=== PATIENT | male | born 1990 | race Caucasian/White ===

== ENCOUNTER 2017-02-06 20:27 | Emergency (ER) | payer MEDICAID, OTHER ==
[2017-02-06 20:37] VITALS: BP 122/69; PULSE 63; RESP 18; TEMP 99.1; O2SAT 99
== END 2017-02-06 21:45 | disposition left against medical advice (07) ==
LOC: H.ER 20:27
DX: Z02.89 Encounter for other administrative examinations (principal)

== ENCOUNTER 2017-02-08 11:33 | Emergency (ER) | payer OTHER ==
[2017-02-08 11:35] VITALS: BMI 35.2
[2017-02-08 11:37] VITALS: BP 129/71; PULSE 64; RESP 17; TEMP 97.7; O2SAT 97
[2017-02-08] MEDS ORDERED: Sodium Chloride 0.9% 1,000 ML IV STA (11:56)
[2017-02-08] MEDS ORDERED: Morphine 4 MG/ML VIAL IVP ONE (11:57)
--- NOTE | 2017-02-08 12:00 | ED PDOC ---
HPI: Abdomen Time Seen by Provider: 02/08/17 11:58 Chief Complaint (Nursing): Abdominal Pain Chief Complaint (Provider): ABDOMINAL PAIN History Per: Patient (26 Y/O MALE HERE WITH RUQ ABDOMINAL PAIN ONGOING X 11 DAYS. STATES HE WAS SEEN 02/06/2017 BUT WAS WAITING FOR 45 MINUTES TO BE SEEN AND LEFT. HAS NOT TAKEN ANY PAIN MEDICATIONS. STATES HE HAS HAD SYMPTOMS CONTINUOUSLY. NO H/O ABD SURGERIES.) Past Medical History Reviewed: Historical Data, Nursing Documentation, Vital Signs Vital Signs: Last Vital Signs Temp 97.7 F 02/08/17 11:36 Pulse 64 02/08/17 11:36 Resp 17 02/08/17 11:36 BP 129/71 02/08/17 11:36 Pulse Ox 97 02/10/17 14:58 - Family History Family History: States: Unknown Family Hx - Home Medications Home Medications: Ambulatory Orders Medication Instructions Recorded Clindamycin [Cleocin] 300 mg PO QID #40 cap 02/18/15 traMADol [Ultram] 50 mg PO Q6 PRN #15 tab 02/18/15 Ciprofloxacin HCl [Cipro] 500 mg PO BID #20 tablet 02/08/17 Metronidazole [Flagyl] 500 mg PO QID #40 tablet 02/08/17 Ondansetron ODT [Zofran ODT] 4 mg PO Q8 PRN #10 odt 02/08/17 - Allergies Allergies/Adverse Reactions: Allergies Allergy/AdvReac Type Severity Reaction Status Date / Time No Known Allergies Allergy Verified 02/18/15 20:50 Review of Systems ROS Statement: Except As Marked, All Systems Reviewed And Found Negative Gastrointestinal: Positive for: Abdominal Pain Physical Exam - Reviewed Nursing Documentation Reviewed: Yes Vital Signs Reviewed: Yes - Physical Exam Appears: Positive for: Well, Non-toxic, No Acute Distress Head Exam: Positive for: ATRAUMATIC, NORMAL INSPECTION, NORMOCEPHALIC Skin: Positive for: Normal Color, Warm, DRY Eye Exam: Positive for: EOMI, Normal appearance, PERRL ENT: Positive for: Normal ENT Inspection Neck: Positive for: Normal, Painless ROM Cardiovascular/Chest: Positive for: Regular Rate, Rhythm Respiratory: Positive for: CNT, Normal Breath Sounds Gastrointestinal/Abdominal: Positive for: Normal Exam, Bowel Sounds, Soft, Tenderness (RUQ TENDERNESS) Back: Positive for: Normal Inspection Extremity: Positive for: Normal ROM Neurologic/Psych: Positive for: Alert, Oriented - Laboratory Results Result Diagrams: 02/08/17 12:00 02/08/17 12:00 - ECG O2 Sat by Pulse Oximetry: 97 - Progress ED Course And Treament: PEPCID 20 MG IV X 1 DOSE NS [address] abd/pelvis: IMPRESSION: 1. No radiodense urolithiasis, obstructive uropathy or perinephric reaction bilaterally. Urinary bladder appears largely decompressed. 2. Localized mesenteric reaction at the right paracentral abdomen is seen anteriorly without free air or fluid collection associated or definitive bowel mural thickening. Lack of oral contrast limits evaluation the bowel. Consider possible epiploic appendagitis. If symptoms persist or worsen consider follow- up CT with contrast. patient refused morphine. did not want percocet rx for home. Disposition - Clinical Impression Clinical Impression: Colitis, UTI (urinary tract infection) - Patient ED Disposition Is Patient to be Admitted: No - Disposition Referrals: Darian Car MD [Staff Provider] - Disposition: Routine/Home Disposition Time: 14:58 Condition: STABLE Prescriptions: Ciprofloxacin HCl [Cipro] 500 mg PO BID #20 tablet Metronidazole [Flagyl] 500 mg PO QID #40 tablet Ondansetron ODT [Zofran ODT] 4 mg PO Q8 PRN #10 odt PRN Reason: Nausea/Vomiting Instructions: Urinary Tract Infection in Men (DC), Colitis (ED) Forms: [facility] (Indian), [facility] ED School/Work Excuse
[2017-02-08 12:14] LABS: RBC URINE 8 /hpf (0-3); URINE BACTERIA RARE (<OCC); URINE BILIRUBIN NEGATIVE (NEGATIVE); URINE BLOOD SMALL (NEGATIVE); URINE COLOR YELLOW (YELLOW); URINE GLUCOSE (UA) NEG (Normal); URINE KETONE TRACE mg/dL (NEGATIVE); URINE LEUKOCYTE ESTERASE SMALL Leu/uL (Negative); URINE PROTEIN NEGATIVE (NEGATIVE); URINE UROBILINOGEN 0.2-1.0 mg/dL (0.2-1.0); WBC URINE 33 /hpf (0-5)
[2017-02-08 12:27] LABS: BASO # 0.1 K/uL (0.0-0.2); BASO % 0.8 % (0.0-2.0); EOS # 0.9 K/uL (0.0-0.7); EOS % 6.1 % (0.0-4.0); HEMATOCRIT 48.7 % (35.0-51.0); LYMPH # 3.2 K/uL (1.0-4.3); LYMPH % 21.7 % (20.0-40.0); MEAN CELL VOLUME 85.9 fl (80.0-94.0); MEAN CORPUSCULAR HEMOGLOBIN 29.5 pg (27.0-31.0); MEAN CORPUSCULAR HGB CONC 34.4 g/dL (33.0-37.0); MEAN PLATELET VOLUME 8.7 fl (7.2-11.7); MONO # 1.1 K/uL (0.0-0.8); MONO % 7.4 % (0.0-10.0); NEUT # 9.4 K/uL (1.8-7.0); NRBC % 0.1 % (0.0-0.0); WHITE BLOOD COUNT 14.7 K/uL (4.8-10.8)
[2017-02-08 12:34] LABS: PARTIAL THROMBOPLASTIN TIME 34.2 Seconds (25.6-37.1)
[2017-02-08 12:39] LABS: ALCOHOL SERUM < 10 mg/dl (0-10); ALKALINE PHOSPHATASE 60 U/L (38-126); ALT/SGPT 47 U/L (21-72); AST/SGOT 26 U/L (17-59); BILIRUBIN,TOTAL 1.2 mg/dl (0.2-1.3); BLOOD UREA NITROGEN 16 mg/dl (9-20); CALCIUM 9.2 mg/dL (8.4-10.2); CARBON DIOXIDE 22 mmol/L (22-30); CHLORIDE 105 mmol/L (98-107); GFR AFRICAN-AMERICAN > 60; GLUCOSE,RANDOM 99 mg/dL (75-110); LIPASE 26 U/L (23-300); SODIUM 142 mmol/l (132-148)
[2017-02-08 12:40] LABS: ALB/GLOB RATIO 1.2 (1.0-2.1)
--- NOTE | 2017-02-08 12:41 | US ---
HISTORY: EVALUATE FOR CHOLECYSTITIS COMPARISON: None. TECHNIQUE: Sonographic evaluation of the right upper quadrant of the abdomen. FINDINGS: LIVER: Measures 16.3 cm in length. Normal echogenicity of the liver parenchyma. No mass. No intrahepatic bile duct dilatation. GALLBLADDER: No calculi. Incidental 4 mm nonmobile polyp. No mural thickening or pericholecystic fluid. Positive sonographic Rice sign. Findings are equivocal for cholecystitis. COMMON BILE DUCT: Measures 4 mm. No stones. No dilatation. PANCREAS: Could not visualized due to overlying bowel gas. RIGHT KIDNEY: Could not visualized due to bowel gas and uncooperative patient. AORTA: Unable to visualize IVC: Unable to visualize OTHER FINDINGS: None . IMPRESSION: Limited examination. No evidence of cholelithiasis. Positive sonographic Rice's sign, of uncertain significance in the absence of cholelithiasis or mural thickening. Incidental 4 mm gallbladder polyp. No biliary obstruction.
[2017-02-08] MEDS ORDERED: cefTRIAXone (Rocephin) 1 gm Inj IVPB ONE (13:37)
[2017-02-08] MEDS ORDERED: cefTRIAXone IV 1 gm in Dextros 50 ML IVPB ONE ×2 (13:45→14:23)
--- NOTE | 2017-02-08 14:00 | CT ---
PROCEDURE: CT Abdomen and Pelvis without intravenous contrast HISTORY: evaluate for renal colic COMPARISON: None. TECHNIQUE: Helical CT of the abdomen and pelvis was performed without oral or intravenous contrast as per referring physician request. Contrast Dose: None Radiation dose: Total exam DLP = 1172.39 mGy-cm. This CT exam was performed using one or more of the following dose reduction techniques: Automated exposure control, adjustment of the mA and/or kV according to patient size, and/or use of iterative reconstruction technique. FINDINGS: LOWER THORAX: Unremarkable. LIVER: Unremarkable. No gross lesion or ductal dilatation. GALLBLADDER AND BILE DUCTS: Unremarkable. PANCREAS: Unremarkable. No gross lesion or ductal dilatation. SPLEEN: Unremarkable. ADRENALS: Unremarkable. No mass. KIDNEYS AND URETERS: No radiodense urolithiasis or perinephric reaction. No hydronephrosis. No solid mass. VASCULATURE: Unremarkable. No aortic aneurysm. BOWEL: Unremarkable. No obstruction. No gross mural thickening. APPENDIX: Unremarkable. Normal appendix. PERITONEUM: Note is made of ground-glass opacity and reactive change at the anterior right paracentral mesentery. The lack of oral contrast limits evaluation local small and large bowel loops) as well as the remaining bowel), however do not appear to have significantly thickened rosa. Retained fecal material obscures evaluation of the colon. Therefore, consider possible epiploic appendagitis rather than bowel related etiology. There is no ascites or free intraperitoneal gas identified. LYMPH NODES: Unremarkable. No enlarged lymph nodes. BLADDER: Largely decompressed. REPRODUCTIVE: Unremarkable. BONES: No acute fracture. OTHER FINDINGS: None. IMPRESSION: 1. No radiodense urolithiasis, obstructive uropathy or perinephric reaction bilaterally. Urinary bladder appears largely decompressed. 2. Localized mesenteric reaction at the right paracentral abdomen is seen anteriorly without free air or fluid collection associated or definitive bowel mural thickening. Lack of oral contrast limits evaluation the bowel. Consider possible epiploic appendagitis. If symptoms persist or worsen consider follow-up CT with contrast.
== END 2017-02-08 15:51 | disposition home or self-care (01) ==
LOC: H.ER 11:33
DX: K52.9 Noninfective gastroenteritis and colitis, unspecified (principal); N39.0 Urinary tract infection, site not specified
CPT/HCPCS: 74176; 76705; 80053; 80320; 81003; 83690; 85025; 85610; 85730; 86850; 86900; 87086; 96374; 99283; J0696; J7040